=== PATIENT | male | born 1955 | race Caucasian/White ===

== ENCOUNTER 2018-08-10 13:52 | Observation (INO) ==
[2018-08-10] MEDS ORDERED: ALBUTEROL SULFATE/IPRATROPIUM 3 ML NEBU IH ONE ×2 (14:02→14:04)
[2018-08-10 14:31] LABS: Hematocrit 44.8 % (42.0-52.0); Hemoglobin 14.6 gm/dL (13.5-18.0); Mean Cell Volume 97.4 fl (78-100); Mean Corpuscular Hemoglobin 31.7 pg (27-31); Mean Corpuscular Hgb Conc 32.6 g/dl (32-36); Mean Platelet Volume 8.9 fl (8-11.3); Neutrophil # 8.5 K/mm3 (1.3-6.0); Neutrophil % 79.1 % (42-75.0); Platelet Count 248 K/mm3 (150-450); Red Cell Distribution Width 12.3 % (11.5-14.0); White Blood Count 10.7 K/mm3 (4.0-10.5)
--- NOTE | 2018-08-10 14:38 | ERNOTE ---
Dyspnea - Date Date of Service: 08/10/18 - General Presenting Symptoms: shortness of breath Time Seen by Provider: 08/10/18 14:06 Source: patient, family, RN notes reviewed, old records Exam Limitations: clinical condition - Immun/Allergies/Home Medications Immunizations: IMMUNIZATION HX Immunizations Up to Date Yes History of Influenza Vaccine No Hx Pneumococcal Vaccination Yes Allergies/Adverse Reactions: Allergies No Known Allergies Allergy (Verified 08/10/18 14:06) Home Medications: HOME MEDICATIONS Hydroxychloroquine Sulfate [Plaquenil] 400 mg PO DAILY 11/05/13 [Last Taken Unknown] Leflunomide 20 mg PO DAILY 11/05/13 [Last Taken Unknown] Nabumetone 1,000 mg PO DAILY 11/05/13 [Last Taken Unknown] sulfaSALAzine [Sulfasalazine] 1,500 mg PO BID 11/05/13 [Last Taken Unknown] albuterol sulfate HFA 90 mcg/actuation aerosol inhaler 1 - 2 puff IH Q4H PRN #1 inhaler 06/25/18 [Last Taken Unknown] sitagliptin 100 mg tablet 100 mg PO DAILY #30 tab 06/25/18 [Last Taken Unknown] metformin 500 mg tablet 500 mg PO BID #60 tab 07/21/18 [Last Taken Unknown] Blood Sugar Diagnostic [ReliOn Prime Test Strips] 1 unit .ROUTE .MEDSUPPLY 08/10/18 [Last Taken Unknown] Blood-Glucose Meter [Contour Link] 1 each .ROUTE .MEDSUPPLY 08/10/18 [Last Taken Unknown] - History of Present Illness Narrative: Filiberto is a 62 year old male who was sent to the ED from the clinic where he was found to have an oxygen saturation in the low 70's. He was being seen there for increasing cough and shortness of breath. This began 4 days ago. He has a history of COPD. Date (Duration): 08/06/18 Severity: severe Treatment APPLICATION SECURITY SPECIALIST: none Initiating event: Reports: unknown Frequency of episodes: Reports: occassional episodes Modifying Factors - (Improves): Reports: nothing Modifying Factors (Worsens): Reports: activity, lying down Associated Symptoms-Dyspnea: Reports: cough, wheezing. Denies: fever/chills, sweating, chest pain/discomfort, leg/calf pain, ankle/leg swelling, dizziness, lightheadedness, anxiety, tingling of hands/face Prior Treatment: Denies: recently seen Review of Systems - Review of Systems Constitutional: Present: See HPI, fatigue, malaise EYE: Absent: eye pain, eye discharge ENT: Present: nose congestion, sore throat. Absent: ear pain Respiratory: Present: See HPI Cardiology: Present: See HPI Gastrointestinal/Abdominal: Absent: vomiting, diarrhea Genitourinary: Present: no symptoms reported Musculoskeletal: Absent: muscle pain, joint pain Skin: Absent: rash, lesions Neurological: Absent: headache, dizziness/light-headedness Endocrine: Present: no symptoms reported Hematologic/Lymphatic: Absent: easy bruising, easy bleeding Psych: Present: See HPI Medical History (Last Reviewed 08/10/18 @ 15:20 by Kathia Gottlieb NP) Type 2 diabetes mellitus (Acute) Rheumatoid arthritis (Chronic) Onset Date: Unknown Psoriasis (Chronic) Onset Date: Unknown COPD (chronic obstructive pulmonary disease) (Chronic) Onset Date: Unknown COPD bronchitis (Acute) Cellulitis of left lower leg Onset Date: ~2015 Surgical History: Surgical History (Last Reviewed 08/10/18 @ 15:20 by Kathia Gottlieb NP) No significant past surgical history Family History: Family History (Last Reviewed 08/10/18 @ 15:20 by Kathia Gottlieb NP) Brother Diabetes Father , age 40's Aneurysm Mother , age 80's Brain swelling Social History: Preferred Language Khmer Smoking Status Current every day smoker Abuse History No History of abuse Psych History No pertinent hx Alcohol Use sober Drug Use none (Last Updated 08/10/18 @ 13:[address] DO) No Social History Section defined Physical Exam - Physical Exam General Appearance: Present: wd/wn, alert, moderate distress Head Exam: Present: normal inspection Eye Exam: Normal inspection: bilateral Ears, Nose, Throat: Present: nasal congestion, pharyngeal erythema. Absent: abnormal TM (R), abnormal TM (L), sinus pain/drainage, pharyngeal swelling Neck: Present: normal inspection, nontender, supple Respiratory: Present: respiratory distress, accessory muscle use, decreased breath sounds - Severe, bilaterally, expiration (prolonged) Cardiovascular/Chest: Present: no murmur, normal peripheral pulses, tachycardia Extremity Exam: Present: normal inspection, no edema Neurological Exam: Present: alert, oriented, normal mood/affect, no motor/sensory deficits Skin Exam: Present: warm/dry, other - dusky color ED Progress - Results and Orders Patient's Lab Results:: I have reviewed the patient's lab results. - Vital Signs Patient's Vital Signs:: I have reviewed the patient's vital signs. Vital Signs: Vital Signs 08/10/18 14:01 08/10/18 14:06 08/10/18 14:08 Temperature Pulse Rate 115 H 114 H 108 H Respiratory Rate 22 H 18 25 H Blood Pressure 122/71 122/71 122/71 O2 Sat by Pulse Oximetry 74 L 92 L 92 L 08/10/18 14:10 08/10/18 14:11 Temperature 37.0 C Pulse Rate 110 H 121 H Respiratory Rate 27 H 22 H Blood Pressure 122/71 O2 Sat by Pulse Oximetry 91 L 91 L - EKG EKG: other - Sinus tach EKG read: Reviewed by me - X-Ray X-Ray #1 X-Ray: chest Interpretation: Reviewed by me X-ray Comments: Chest Single View *: Hyperinflated lungs, with more hyperinflated right lung, and relatively decreased left lung volume, stable. No definite new consolidation. Scarring seen in the left lung predominantly at the lingula and the left lung base remains stable to somewhat decreased in prominence. Pulmonary vasculature is normal. No pneumothorax or pleural fluid collections apparent. Cardiac and mediastinal silhouettes are grossly stable. Trachea is in normal position given patient positioning. Osseous structures are grossly intact. IMPRESSION: 1. No acute cardiopulmonary finding. 2. Stable findings are as above, compatible with chronic scarring of the left lung, and overall findings suggestive of underlying COPD/emphysema. Correlate clinically. Electronically signed by Amrik Harris M.D.. - Progress/Reassessment Chief Complaint: Dyspnea Plan - Plan Plan: Blood gas demonstrates hypercapnia and hypoxia. WBC is slightly elevated with a left shift and a normal lactate. The patient's respiratory status did improve somewhat with a Duoneb treatment. His oxygen saturation is now in the low 90's with oxygen at 3 liters via nasal canula. Rocephin and Solumedrol were given IV. Dr. St was contacted. The patient will be admitted to his care for further treatment and monitoring. Departure Clinical Impression: COPD with acute exacerbation, Hypoxemia Respiratory failure Qualifiers: Chronicity: acute on chronic Respiratory failure complication: hypoxia and hypercapnia Qualified Code(s): J96.21 - Acute and chronic respiratory failure with hypoxia - Departure Disposition: Still a patient Condition: Serious Referrals: Chadwick St DO [Primary Care Provider] -
[2018-08-10 14:44] LABS: Albumin * 3.5 gm/dl (3.4-5.0); Anion Gap 6.3 mmol/L (6.8-13.8); BUN/Creatinine Ratio 17.7 (9.0-21.6); Bilirubin, Total 0.5 mg/dL (0.0-1.1); Ca. Corrected For Albumin 9.2 mg/dL (8.4-10.2); Calcium * 9.1 mg/dL (7.9-10.9); Carbon Dioxide 37.2 mmol/L (24-32.6); Potassium 4.5 mmol/L (3.4-4.6); Total Protein 7.5 gm/dL (6.2-8.2)
[2018-08-10] MEDS ORDERED: METHYLPREDNISOLONE SOD SUCC/PF 125 MG/2 ML VIAL IV ONE (15:18)
[2018-08-10] MEDS ORDERED: ALBUTEROL SULFATE 200 PUFF INHALER IH PRN (18:36)
[2018-08-10] MEDS ORDERED: ACETAMINOPHEN 500 MG TABLET PO PRN (18:39)
[2018-08-10] MEDS ORDERED: NICOTINE 14 MG PATC TD SCH (18:45)
--- NOTE | 2018-08-10 18:50 | HP ---
Chief Complaint - Chief Complaint Date of Service: 08/10/18 Time of Service: 16:00 Chief Complaint: shortness of breath History of Present Illness: Eduardo Finney is a 62 yo wh male who was seen in the office today and was very SOB with O2 sat of 69%. He was tachypneic and his color was with perioral cyanosis. He had tacycardia and tachypnea. Unable to get his O2 sat >79% I had him taken to the ER where he was evaluated and treated with RT txs, IV steroids and O2 at 3L nc and improved his O2 sat to ~90%. He ws agreable to admission. He is more comfortable now and his color is better. CXR does not show any acute CP process. WBC count is normal. Medical History (Last Reviewed 08/10/18 @ 16:59 by Karol King RN) Type 2 diabetes mellitus (Chronic) Rheumatoid arthritis (Chronic) Onset Date: Unknown Psoriasis (Chronic) Onset Date: Unknown COPD (chronic obstructive pulmonary disease) (Chronic) Onset Date: Unknown COPD bronchitis (Acute) Cellulitis of left lower leg Onset Date: ~2015 Surgical History: Surgical History (Last Reviewed 08/10/18 @ 17:00 by Karol King RN) No significant past surgical history Family History: Family History (Last Reviewed 08/10/18 @ 17:00 by Karol King RN) Brother Diabetes Father , age 40's Aneurysm Mother , age 80's Brain swelling Social History: Patient Lives/Resources Home Utilized Preferred Language Libyan Do you have any latter day or No cultural preference? Smoking Status Current every day smoker Have you smoked in the past 12 Yes months Abuse History No History of abuse Psych History No pertinent hx Alcohol Use sober Drug Use none (Last Updated 08/10/18 @ 13:[address] DO) No Social History Section defined Review Of Systems (GEN) - Review of Systems Generalized/Overall Review: Present: Weakness, Fatigue, Weight loss EENTM: Present: No Symptoms Reported Respiratory: Present: Cough, Shortness of Breath, Stridor, Wheezing Cardiac: Present: No Symptoms Reported Abdominal: Present: No Symptoms Reported Genitourinary: Present: No Symptoms Reported Musculoskeletal: Present: Other - He has RA and joint deformities in his hands Neurological: Present: No Symptoms Reported Skin: Present: No Symptoms Reported Endocrine: Present: No Symptoms Reported, Other - He is a type II NIDDM pt. Immunizations: IMMUNIZATION HX Immunizations Up to Date Yes History of Influenza Vaccine No Hx Pneumococcal Vaccination Yes Allergies/Adverse Reactions: Allergies Allergy/AdvReac Type Severity Reaction Status Date / Time No Known Allergies Allergy Verified 08/10/18 17:00 Home Medications: HOME MEDICATIONS Hydroxychloroquine Sulfate [Plaquenil] 400 mg PO DAILY 11/05/13 [Last Taken 08/10/1830] Leflunomide 20 mg PO DAILY 11/05/13 [Last Taken 08/10/1830] Nabumetone 500 mg PO BID 11/05/13 [Last Taken 08/10/18 09:30] sulfaSALAzine [Sulfasalazine] 1,500 mg PO BID 11/05/13 [Last Taken 08/10/18 09:30] albuterol sulfate HFA 90 mcg/actuation aerosol inhaler 1 - 2 puff IH Q4H PRN #1 inhaler 06/25/18 [Last Taken Unknown] sitagliptin 100 mg tablet 100 mg PO DAILY #30 tab 06/25/18 [Last Taken 08/10/18 0930] metformin 500 mg tablet 500 mg PO BID #60 tab 07/21/18 [Last Taken 08/10/18 0930] Blood Sugar Diagnostic [Contour Test Strip] 1 unit .ROUTE .MEDSUPPLY 08/10/18 [Last Taken Unknown] Blood-Glucose Meter [Contour Link] 1 each .ROUTE .MEDSUPPLY 08/10/18 [Last Taken Unknown] Acetaminophen [Tylenol] 1,000 mg PO Q6H PRN tablet 08/11/18 [Last Taken Unknown] Nicotine [Nicoderm] 14 mg TD Q24H patch.td24 08/11/18 [Last Taken Unknown] Exam - Exam Vital Signs: Vital Signs - Last Taken Temp 37.0 C 08/10/18 16:28 Pulse 105 H 08/10/18 16:28 Resp 22 H 08/10/18 16:28 BP 131/74 08/10/18 16:28 Pulse Ox 91 L 08/10/18 16:28 Constitutional: Present: Alert, Oriented x3, Cooperative, Well developed, Well nourished, Moderate distress ENT Exam: Present: normal ENT inspection, hearing grossly normal, pharynx normal, TMs normal Eye Exam: bilateral eye: normal inspection, PERRL, EOMI Neck: Present: non-tender, full range of motion, supple, normal inspection, trachea midline, limited range of motion Back Exam: Present: normal inspection, no CVA tenderness, no vertebral tenderness Breasts: Present: Exam deferred Respiratory: Present: chest non-tender, decreased breath sounds, accessory muscle use, rhonchi, stridor, wheezing, expiration (prolonged) Cardiovascular/Chest: Present: tachycardia Peripheral Pulses: carotid (R): 2+, carotid (L): 2+, radial (R): 2+, radial (L): 2+ Abdomen: Present: Normal bowel sounds, soft, nontender, nondistended, no rebound tenderness, no hepatospenomegaly, no masses /Rectal: Present: Exam deferred Extremity: Present: normal range of motion, non-tender, normal inspection, no pedal edema, no calf tenderness, normal capillary refill Skin Exam: Present: normal color, warm/dry, no cyanosis Lymphatic: Present: no adenopathy Neurologic: Present: brush clearer surveying II-XII nml as tested, no motor/sensory deficits, alert, normal mood/affect, oriented x 3, abnormal gait Appearance: Present: appropriate appearance, appropriate insight, neat, no memory impairment Eye contact: Present: cooperative, good eye contact, normal speech, avoids eye contact, refused to answer Thoughts: Present: normal thought pattern, no apparent hallucination, auditory hallucinations, delusions Diagnostic Studies: Abnormal Lab Results 08/10/18 08/10/18 08/10/18 Range/Units 14:20 14:20 15:05 WBC 10.7 H (4.0-10.5) K/mm3 RBC 4.60 L (4.7-6.0) M/mm3 MCH 31.7 H (27-31) pg Immature Gran # (Auto) 0.04 H (0.000-0.0310) K/mm3 Neutrophils % 79.1 H (42-75.0) % Lymphocytes % 8.6 L (20-51) % Monocytes % 9.6 H (0.0-9) % Neutrophils # 8.5 H (1.3-6.0) K/mm3 Lymphocytes # 0.92 L (1.5-3.5) k/mm3 pCO2 68.5 H (35.0-48.0) mmHg pO2 50.8 L (83.0-108.0) mmHg HCO3 29.6 H (21.0-28.0) mmol/L Total CO2 31.7 H (19.0-24.0) mmol/L ABG pH 7.25 L (7.35-7.45) ABG O2 Sat (Measured) 79.0 L (94.0-98.0) % Carbon Dioxide 37.2 H (24-32.6) mmol/L Anion Gap 6.3 L (6.8-13.8) mmol/L Random Glucose 230 H (70-110) mg/dL Alkaline Phosphatase 177 H (50-170) U/L Laboratory Results WBC 10.7 K/mm3 (4.0-10.5) H 08/10/18 14:20 RBC 4.60 M/mm3 (4.7-6.0) L 08/10/18 14:20 Hgb 14.6 gm/dL (13.5-18.0) 08/10/18 14:20 Hct 44.8 % (42.0-52.0) 08/10/18 14:20 MCV 97.4 fl (78-100) 08/10/18 14:20 MCH 31.7 pg (27-31) H 08/10/18 14:20 MCHC 32.6 g/dl (32-36) 08/10/18 14:20 RDW 12.3 % (11.5-14.0) 08/10/18 14:20 Plt Count 248 K/mm3 (150-450) 08/10/18 14:20 MPV 8.9 fl (8-11.3) 08/10/18 14:20 Immature Gran % (Auto) 0.40 % (0.001-0.429) 08/10/18 14:20 Immature Gran # (Auto) 0.04 K/mm3 (0.000-0.0310) H 08/10/18 14:20 Neutrophils % 79.1 % (42-75.0) H 08/10/18 14:20 Lymphocytes % 8.6 % (20-51) L 08/10/18 14:20 Monocytes % 9.6 % (0.0-9) H 08/10/18 14:20 Eosinophils % 1.9 % (0.0-3.0) 08/10/18 14:20 Basophils % 0.4 % (0.0-1.0) 08/10/18 14:20 Nucleated RBC % 0.0 k/mm3 (0-1) 08/10/18 14:20 Neutrophils # 8.5 K/mm3 (1.3-6.0) H 08/10/18 14:20 Lymphocytes # 0.92 k/mm3 (1.5-3.5) L 08/10/18 14:20 Monocytes # 1.0 k/mm3 (0.0-1.0) 08/10/18 14:20 Eosinophils # 0.2 k/mm3 (0.0-0.7) 08/10/18 14:20 Absolute Basophils 0.0 k/mm3 (0.0-0.1) 08/10/18 14:20 pCO2 68.5 mmHg (35.0-48.0) H 08/10/18 15:05 pO2 50.8 mmHg (83.0-108.0) L 08/10/18 15:05 HCO3 29.6 mmol/L (21.0-28.0) H 08/10/18 15:05 Total CO2 31.7 mmol/L (19.0-24.0) H 08/10/18 15:05 Base Excess 0.5 mmol/L (-2.0-3.0) 08/10/18 15:05 ABG pH 7.25 (7.35-7.45) L 08/10/18 15:05 ABG O2 Sat (Measured) 79.0 % (94.0-98.0) L 08/10/18 15:05 Sodium 139 mmol/L (132-142) 08/10/18 14:20 Plasma Sodium 141 mmol/L (130-142) 08/10/18 14:20 Potassium 4.5 mmol/L (3.4-4.6) 08/10/18 14:20 Chloride 100 mmol/L (97-106) 08/10/18 14:20 Carbon Dioxide 37.2 mmol/L (24-32.6) H 08/10/18 14:20 Anion Gap 6.3 mmol/L (6.8-13.8) L 08/10/18 14:20 BUN 17 mg/dL (6-23) 08/10/18 14:20 Creatinine 0.96 mg/dL (0.4-1.4) 08/10/18 14:20 Est GFR (Non-Af Amer) 84 mL/min (60-130) 08/10/18 14:20 BUN/Creatinine Ratio 17.7 (9.0-21.6) 08/10/18 14:20 Random Glucose 230 mg/dL (70-110) H 08/10/18 14:20 Lactic Acid, Venous 1.4 mmol/L (0.4-2.0) 08/10/18 14:20 Calcium 9.1 mg/dL (7.9-10.9) 08/10/18 14:20 Calcium Adj for Albumin 9.2 mg/dL (8.4-10.2) 08/10/18 14:20 Total Bilirubin 0.5 mg/dL (0.0-1.1) 08/10/18 14:20 AST 22 U/L (0-48) 08/10/18 14:20 ALT 23 U/L (19-67) 08/10/18 14:20 Alkaline Phosphatase 177 U/L (50-170) H 08/10/18 14:20 Total Protein 7.5 gm/dL (6.2-8.2) 08/10/18 14:20 Albumin 3.5 gm/dl (3.4-5.0) 08/10/18 14:20 Assessment/Plan - Narrative Narrative: 1. RT treatments as scheduled 2. Continue antibiotics 3. Wean oxygen down to 2 L when able 4. IV steroids - Assessment/Plan (1) Hypoxemia Problem: Acute (2) COPD with acute exacerbation Problem: Acute (3) Current every day smoker Problem: Chronic (4) Type 2 diabetes mellitus Problem: Chronic Qualifiers: Diabetes mellitus longterm insulin use: without exterminator termite use Diabetes mellitus complication status: without complication Qualified Code(s): E11.9 - Type 2 diabetes mellitus without complications (5) Rheumatoid arthritis Problem: Chronic Qualifiers: Rheumatoid arthritis location: multiple sites Rheumatoid factor presence: with rheumatoid factor Qualified Code(s): M05.79 - Rheumatoid arthritis with rheumatoid factor of multiple sites without organ or systems involvement
[2018-08-10] MEDS ORDERED: NICOTINE 7 MG PATC TD ONE (20:14)
[2018-08-10] MEDS: sulfaSALAzine 500 MG TABLET PO SCH (20:19)
[2018-08-10] MEDS: metFORMIN HCL 500 MG TABLET PO SCH (20:20)
[2018-08-10] MEDS: ALBUTEROL SULFATE 2.5 MG/0.5 ML VIAL.NEB IH PRN (22:41)
[2018-08-11 05:35] LABS: Mean Cell Volume 98.4 fl (78-100); Mean Corpuscular Hgb Conc 32.6 g/dl (32-36); Mean Platelet Volume 8.9 fl (8-11.3); Neutrophil % 87.5 % (42-75.0); Platelet Count 231 K/mm3 (150-450); Red Blood Count 4.37 M/mm3 (4.7-6.0); Red Cell Distribution Width 12.2 % (11.5-14.0); White Blood Count 14.9 K/mm3 (4.0-10.5)
[2018-08-11 05:37] LABS: Anion Gap 5.2 mmol/L (6.8-13.8); BUN/Creatinine Ratio 23.2 (9.0-21.6); Calcium * 9.1 mg/dL (7.9-10.9); Carbon Dioxide 37.8 mmol/L (24-32.6); Estimated Creat Clear 104.2
[2018-08-11 05:54] LABS: Albumin * 3.2 gm/dl (3.4-5.0)
[2018-08-11] MEDS: ALBUTEROL SULFATE 2.5 MG/0.5 ML VIAL.NEB IH PRN (06:09)
[2018-08-11] MEDS ORDERED: ALBUTEROL SULFATE 2.5 MG/0.5 ML VIAL.NEB IH PRN (06:30)
[2018-08-11] MEDS: sulfaSALAzine 500 MG TABLET PO SCH (08:47)
[2018-08-11] MEDS: metFORMIN HCL 500 MG TABLET PO SCH (08:47)
[2018-08-11] MEDS ORDERED: LEFLUNOMIDE 20 MG TABLET PO SCH (09:00)
[2018-08-11] MEDS ORDERED: sitaGLIPtin PHOSPHATE 50 MG TABLET PO SCH (09:00)
[2018-08-11] MEDS ORDERED: NABUMETONE 500 MG TABLET PO SCH (09:00)
[2018-08-11] MEDS ORDERED: HYDROXYCHLOROQUINE SULFATE 200 MG TABLET PO SCH (09:00)
--- NOTE | 2018-08-11 12:33 | DS ---
(1) Hypoxemia Problem: Resolved (2) COPD with acute exacerbation Problem: Resolved (3) Type 2 diabetes mellitus Problem: Chronic Qualifiers: Diabetes mellitus alf insulin use: without test and research reactor operator use Diabetes mellitus complication status: without complication Qualified Code(s): E11.9 - Type 2 diabetes mellitus without complications (4) Rheumatoid arthritis Problem: Chronic Qualifiers: Rheumatoid arthritis location: multiple sites Rheumatoid factor presence: with rheumatoid factor Qualified Code(s): M05.79 - Rheumatoid arthritis with rheumatoid factor of multiple sites without organ or systems involvement (5) Current every day smoker Problem: Chronic Description of Stay: Filiberto Finney is a 62 yo. wh. male who was admitted through ER yesterday with an acute exacerbation of his COPD. He was seen in the office yesterday afternoon and sent to ER because of low O2 sats of 69%-79%. He was treated in the ER with RT txs, IV Rocephin, and IV steroids. This morning he is much better. His color is now pink and his O2 sat on 3L NC is 96%. He was walkied in the huang on room air and desaturated to 87% and recovered to 90% on 1 liter O2. He will require home O2 in a concentrator and portable O2 as he is now oxygen dependent. Procedures Performed: none Results and Findings: Lab Pending Results 08/10/18 14:20: WBC 10.7 H, RBC 4.60 L, Hgb 14.6, Hct 44.8, MCV 97.4, MCH 31.7 H, MCHC 32.6, RDW 12.3, Plt Count 248, MPV 8.9, Immature Gran % (Auto) 0.40, Immature Gran # (Auto) 0.04 H, Neutrophils % 79.1 H, Lymphocytes % 8.6 L, Monocytes % 9.6 H, Eosinophils % 1.9, Basophils % 0.4, Nucleated RBC % 0.0, Neutrophils # 8.5 H, Lymphocytes # 0.92 L, Monocytes # 1.0, Eosinophils # 0.2, Absolute Basophils 0.0 08/10/18 14:20: Sodium 139, Plasma Sodium 141, Potassium 4.5, Chloride 100, Carbon Dioxide 37.2 H, Anion Gap 6.3 L, BUN 17, Creatinine 0.96, Est GFR (Non-Af Amer) 84, BUN/Creatinine Ratio 17.7, Random Glucose 230 H, Calcium 9.1, Calcium Adj for Albumin 9.2, Total Bilirubin 0.5, AST 22, ALT 23, Alkaline Phosphatase 177 H, Total Protein 7.5, Albumin 3.5 08/10/18 14:20: Lactic Acid, Venous 1.4 08/10/18 15:05: pCO2 68.5 H, pO2 50.8 L, HCO3 29.6 H, Total CO2 31.7 H, Base Excess 0.5, ABG pH 7.25 L, ABG O2 Sat (Measured) 79.0 L 08/11/18 05:00: AST 20, ALT 23, Albumin 3.2 L 08/11/18 05:15: WBC 14.9 H D, RBC 4.37 L, Hgb 14.0, Hct 43.0, MCV 98.4, MCH 32.0 H, MCHC 32.6, RDW 12.2, Plt Count 231, MPV 8.9, Immature Gran % (Auto) 0.30, Immature Gran # (Auto) 0.04 H, Neutrophils % 87.5 H, Lymphocytes % 3.8 L, Monocytes % 8.3, Eosinophils % 0.0, Basophils % 0.1, Nucleated RBC % 0.0, Neutrophils # 13.0 H, Lymphocytes # 0.57 L, Monocytes # 1.2 H, Eosinophils # 0.0, Absolute Basophils 0.0 08/11/18 05:15: Sodium 138, Plasma Sodium 140, Potassium 5.0 H, Chloride 100, Carbon Dioxide 37.8 H, Anion Gap 5.2 L, BUN 19, Creatinine 0.82, Est GFR (Non-Af Amer) 101 D, BUN/Creatinine Ratio 23.2 H, Random Glucose 235 H, Calcium 9.1 Discharge Location: Home Disposition: Home self-care Condition: Fair Face to Face Encounter completed per CMS Guidelines: Yes - For oxygen: concentrator and portable. Discharge Activity: Activity as tolerated Discharge Diet: General/regular food Referrals: Chadwick St DO [Primary Care Provider] - Complete Home Medications List: Complete Home Medication List: Hydroxychloroquine Sulfate [Plaquenil] 400 mg PO DAILY 11/05/13 Leflunomide 20 mg PO DAILY 11/05/13 Nabumetone 500 mg PO BID 11/05/13 sulfaSALAzine [Sulfasalazine] 1,500 mg PO BID 11/05/13 albuterol sulfate HFA 90 mcg/actuation aerosol inhaler 1 - 2 puff IH Q4H PRN #1 inhaler 06/25/18 sitagliptin 100 mg tablet 100 mg PO DAILY #30 tab 06/25/18 metformin 500 mg tablet 500 mg PO BID #60 tab 07/21/18 Blood Sugar Diagnostic [Contour Test Strip] 1 unit .ROUTE .MEDSUPPLY 08/10/18 Blood-Glucose Meter [Contour Link] 1 each .ROUTE .MEDSUPPLY 08/10/18 Acetaminophen [Tylenol] 1,000 mg PO Q6H PRN tablet 08/11/18 Nicotine [Nicoderm] 14 mg TD Q24H patch.td24 08/11/18
[2018-08-11 16:24] VITALS: BP 107/62
== END 2018-08-11 16:51 | disposition home or self-care (01) ==
LOC: ER 13:52 → MS 15:43 → INTOOBSV 15:43 → MS 16:15
PROVIDERS: ADMIT Family Medicine; ATTEND Family Medicine
CPT/HCPCS: 36415; 36600; 71010; 71045; 80048; 80053; 82040; 82803; 83605; 84450; 84460; 85025; 87040; 90471; 90686; 93005; 94640; 94664; 94760; 96365; 96375; 99285; G0378